=== PATIENT | female | born 1980 | race Caucasian/White ===

== ENCOUNTER 2019-09-17 13:17 | Emergency (ER) | payer OTHER ==
[2019-09-17 13:49] VITALS: BP 145/89
--- NOTE | 2019-09-17 14:25 | UC ---
Throat Pain/Nasal Nguyễn HPI - HPI Summary HPI Summary: 38 year old female presents with 2 1/2 week history of nasal congestion, sinus pain/pressure, bilateral ear fullness, and general malaise. No measured fever but reports occasional chills. Reports symptoms most severe approximately 1 week ago. Had some improvement but symptoms "have plateaued for the past 5 days ". States discharge was initially clear but has become thick and green. Has been using a saline rinse, decongestant nasal spray, and Mucinex D with some relief in symptoms. Denies sore throat, ear drainage, chest pain, shortness of breath, or cough. - History of Current Complaint Chief Complaint: UCRespiratory Stated Complaint: SINUS ISSUE Time Seen by Provider: 09/17/19 14:02 Hx Obtained From: Patient Hx Last Menstrual Period: 2.5 months ago Pain Intensity: 1 - Allergies/Home Medications Allergies/Adverse Reactions: Allergies Allergy/AdvReac Type Severity Reaction Status Date / Time lactose Allergy GI Upset Verified 09/17/19 13:50 GLUTEN INTOLERANCE Allergy GI Upset Uncoded 10/10/14 07:19 PMH/Surg Hx/FS Hx/Imm Hx Previously Healthy: Yes - Denies significant PMH - Surgical History Surgical History: Yes Surgery Procedure, Year, and Place: skin excision right forearm. Thyroid - Family History Known Family History: Positive: Non-Contributory - Social History Occupation: Employed Full-time Lives: Alone Alcohol Use: Occasionally Substance Use Type: None Smoking Status (MU): Never Smoked Tobacco Amount Used/How Often: 1/4 PPD X 2 YEARS Have You Smoked in the Last Year: No When Did the Patient Quit Smoking/Using Tobacco: 2004 Review of Systems All Other Systems Reviewed And Are Negative: Yes Constitutional: Positive: Chills. Negative: Fever Eyes: Negative: Drainage, Eye Redness ENT: Positive: Ear Ache, Nasal Discharge, Sinus Congestion, Sinus Pain/ Tenderness. Negative: Sore Throat Respiratory: Negative: Shortness Of Breath, Cough Cardiovascular: Negative: Palpitations, Chest Pain Gastrointestinal: Negative: Abdominal Pain, Vomiting, Diarrhea, Nausea Genitourinary: Positive: Negative Musculoskeletal: Positive: Negative Neurological/Mental Status: Positive: Negative Is Patient Immunocompromised?: No Physical Exam - Summary Physical Exam Summary: GENERAL APPEARANCE: Alert and cooperative adult female who appears to be in no acute distress. EYES: Conjunctiva clear. No drainage. EARS: External auditory canals and tympanic membranes clear, hearing grossly intact. NOSE: Moderate nasal congestion. No nasal discharge. Frontal and maxillary sinus tenderness. THROAT: Pharyngeal cobblestoning. No tonsilar inflammation, swelling, exudate, or lesions. Uvula midline. NECK: Neck supple, non-tender without lymphadenopathy. CARDIAC: Normal S1 and S2. No S3, S4 or murmurs. Rhythm is regular. There is no peripheral edema, cyanosis or pallor. Extremities are warm and well perfused. Capillary refill is less than 2 seconds. Peripheral pulses intact. LUNGS: Clear to auscultation without rales, rhonchi, wheezing or diminished breath sounds. ABDOMEN: Positive bowel sounds. Soft, nondistended, nontender. No guarding or rebound. No masses or hepatosplenomegally. MUSKULOSKELETAL: ROM intact to all extremities. No joint erythema or tenderness. Normal muscular development. Normal gait. SKIN: Skin normal color, texture and turgor with no lesions or eruptions. Triage Information Reviewed: Yes Vital Signs: Initial Vital Signs Temp 98.1 F 09/17/19 13:46 Pulse 83 09/17/19 13:46 Resp 12 09/17/19 13:46 BP 145/89 09/17/19 13:46 Pulse Ox 99 09/17/19 13:46 Vital Signs Reviewed: Yes Throat Pain/Nasal Course/Dx - Course Course Of Treatment: 38 year old female presents with 2 1/2 week history of nasal congestion, sinus pain/pressure, bilateral ear fullness, and general malaise. No measured fever but reports occasional chills. Reports symptoms most severe approximately 1 week ago. Had some improvement but symptoms "have plateaued for the past 5 days ". States discharge was initially clear but has become thick and green. Has been using a saline rinse, decongestant nasal spray, and Mucinex D with some relief in symptoms. Denies sore throat, ear drainage, chest pain, shortness of breath, or cough. Afebrile. Hypertensive otherwise vital signs stable. Patient had moderate nasal congestion, frontal and maxillary sinus tenderness, pharyngeal cobblestoning, and otherwise unremarkable exam. Discussed with patient that her symptoms are consistent with an acute sinusitis. Considering the duration of her symptoms I am concerned for a secondary bacterial infection and will treat her with Augmentin 875 mg BID x 10 days as well as recommend symptomatic treatment. She is to follow up with her primary care provider in 7 days if symptoms persist. Anticipatory guidance and warning symptoms reviewed with the patient. Verbalizes understanding and agrees with POC. - Differential Dx/Diagnosis Differential Diagnosis/HQI/PQRI: Influenza, Sinusitis, URI Provider Diagnosis: Sinusitis Discharge ED - Sign-Out/Discharge Documenting (check all that apply): Patient Departure All imaging exams completed and their final reports reviewed: No Studies - Discharge Plan Condition: Stable Disposition: HOME Prescriptions: Amoxicillin/Clavulanate TAB* [Augmentin TAB 875*] 875 mg PO BID #20 tab Fluticasone NASAL SPRAY 50MCG* [Flonase NASAL SPRAY 50MCG*] 2 spray BOTH NARES DAILY #1 btl Patient Education Materials: Sinusitis (ED) Referrals: Tania Moody [Primary Care Provider] - 7 Days (If no improvement.) Additional Instructions: Your history and exam are consistent with a sinus infection. Considering the duration of your symptoms we will treat you with an antibiotic for the infection. Start Augmentin 875 mg 1 tablet twice a day for 10 days. Take with food to avoid upset stomach. Be sure to complete the entire course even if feeling better Continue to use a saline rinse kit such as Neti Pot or NeilMed at least twice a day to help thin secretions and promote drainage of the sinuses. Use fluticasone (Flonase) nasal spray 2 sprays each nostril once daily. Use an over the counter decongestant such as Sudafed according to directions to help with congestion. Take over the counter acetaminophen (Tylenol) or ibuprofen (Advil, Motrin) according to directions as needed for pain or fever. Follow up with your primary care provider in 7 days if symptoms persist. Seek immediate medical attention in the emergency room if you have fever greater than 100.5 F despite taking acetaminophen or ibuprofen, have chest pain , difficulty breathing, are unable to swallow, or have any worsening of symptoms. - Billing Disposition and Condition Condition: STABLE Disposition: Home
== END 2019-09-17 14:50 | disposition home or self-care (01) ==
LOC: UCEAST 13:17
DX: J32.9 Chronic sinusitis, unspecified (principal); Z91.011 Allergy to milk products; Z91.018 Allergy to other foods
CPT/HCPCS: 99212; G0463